=== PATIENT | male | born 1970 | race Caucasian/White ===

== ENCOUNTER 2017-02-25 08:55 | Emergency (ER) | payer MEDICAID ==
[~2017-02-25] VITALS: Ht 182.9 cm; Wt 64.5 kg
[~2017-02-25 08:55] MED LIST: ACET500C5 PO; ALBU8.5H3 INH; BENZ100C70 PO; LEVO750T25 PO; METR500T14 PO
[2017-02-25 09:01] VITALS: Ht 182.9 cm; Wt 64.5 kg
[2017-02-25 10:03] LABS: ADD SCAN DIFF NO
[2017-02-25 10:09] LABS: ADD UMIC YES; UR ASCORBIC ACID NEGATIVE (NEGATIVE); UR BILIRUBIN (Dip) NEGATIVE (NEGATIVE); UR BLOOD (Dip) 1+ mg/dL (NEGATIVE); UR CLARITY CLEAR (CLEAR); UR COLOR STRAW (YELLOW); UR GLUCOSE (Dip) NEGATIVE (NEGATIVE); UR KETONES (Dip) NEGATIVE (NEGATIVE); UR LEUKOCYTE ESTERASE (Dip) NEGATIVE Leu/ul (NEGATIVE); UR NITRITE (Dip) NEGATIVE (NEGATIVE); UR RBC 1 /HPF (0-5); UR SPECIFIC GRAVITY (Dip) 1.006 (1.003-1.030); UR TOTAL PROTEIN (Dip) NEGATIVE (NEGATIVE); UR UROBILINOGEN (Dip) NEGATIVE (NEGATIVE)
--- NOTE | 2017-02-25 10:18 | RADRPT ---
PROCEDURE: Chest Radiograph. CLINICAL INDICATION: Shortness of breath TECHNIQUE: Single frontal chest radiograph. COMPARISON: Chest radiograph 10/27/2015 FINDINGS: The cardiomediastinal silhouette is within normal limits. No infiltrate or effusion is seen. Th e bones are intact. IMPRESSION: 1. Unremarkable chest radiograph. RPTAT: KK .Juan C Vu MD, MD Date Time Electronically viewed and signed by .Juan C Vu MD, on 02/25/2017 10:18 .B/
[2017-02-25 10:25] LABS: ALBUMIN 4.7 g/dl (3.3-4.9); ALBUMIN/GLOBULIN RATIO 1.67; BILIRUBIN,INDIRECT 0.8 mg/dl (0-1.1); BILIRUBIN,TOTAL 0.8 mg/dl (0.2-1.3); CALCIUM 9.8 mg/dl (8.4-10.2); CREATININE 0.78 mg/dl (0.61-1.24); POTASSIUM 5.3 mmol/L (3.5-5.1); TOTAL PROTEIN 7.5 g/dl (6.1-8.1)
[2017-02-25 10:30] LABS: BASOPHILS % 0.5 % (0.0-2.0); EOSINOPHILS # 0.2 10^3/ul (0.0-0.5); HEMATOCRIT 44.3 % (42.0-52.0); HEMOGLOBIN 14.4 g/dl (14.0-18.0); LYMPHOCYTES # 1.5 10^3/ul (0.8-2.9); LYMPHOCYTES % 36.3 % (15.0-51.0); MEAN CORPUSCULAR HEMOGLOBIN 31.4 pg (29.0-33.0); MEAN CORPUSCULAR HGB CONC 32.5 g/dl (32.0-37.0); MEAN CORPUSCULAR VOLUME 96.5 fl (82.0-101.0); MEAN PLATELET VOLUME 8.8 fl (7.4-10.4); MONOCYTE # 0.4 10^3/ul (0.3-0.9); NEUTROPHIL # 2.1 10^3/ul (1.6-7.5); PLATELET COUNT 259 10^3/UL (140-415); RED BLOOD COUNT 4.59 10^6/ul (4.70-6.10); RED CELL DISTRIBUTION WIDTH 14.6 % (11.5-14.5); WHITE BLOOD COUNT 4.2 10^3/ul (4.8-10.8)
--- NOTE | 2017-02-25 11:43 | ERD ---
ER Documentation Chief Complaint Date/Time DATE: 02/25/17 TIME: 11:38 Chief Complaint FREQUENCY OF URINATION , BURRY VISION , CHEST CONGESTION X FEW MONTHS HPI This is a 46-year-old male presents to the ER with multiple complaints. Patient states that over the last year he has felt as if he has been getting short of breath. Patient denies any chest pain. Shortness of breath occurs intermittently and is not specific to exertion. He states that he is also having frequent urination which occurs during the day and throughout the night. He does admit to some weight loss and chills at night. He also admits to blurry vision which occurs early in the morning. Patient does admit to subjective fevers over the last year. Patient denies any cough or cold symptoms. He denies any abdominal pain and denies nausea vomiting or diarrhea. Patient does not have a primary care doctor. ROS 12 point review of systems was done, all negative except per HPI. Medications Home Meds Active Scripts Benzonatate* (Tessalon Perle*) 100 Mg Capsule, 100 MG PO Q8H Y for COUGH, #30 CAP Prov:KIET MILLIGAN PA-C 10/27/15 Metronidazole* (Metronidazole*) 500 Mg Tablet, 500 MG PO BID, #7 TAB Prov:KIET MILLIGAN PA-C 10/27/15 Acetaminophen* (Tylophen*) 500 Mg Capsule, 1 CAP PO Q4 Y for PAIN AND OR ELEVATED TEMP, #20 CAP Prov:KAILEE MARTINEZ PA-C 10/14/15 Albuterol Sulfate* (Proair HFA*) 8.5 Gm Hfa.aer.ad, 2 PUFF INH Q4H Y for WHEEZING AND SOB, #1 INHALER Prov:KAILEE MARTINEZ PA-C 10/14/15 Levofloxacin* (Levaquin*) 750 Mg Tablet, 750 MG PO DAILY for 5 Days, TAB Prov:KAILEE MARTINEZ PA-C 10/14/15 PMhx/Soc Medical and Surgical Hx: pt denies Surgical Hx Hx Respiratory Disorders: Yes (PNEUMONIA ) Hx Alcohol Use: No Hx Substance Use: No Hx Tobacco Use: No Physical Exam Vitals Vital Signs Date Time Temp Pulse Resp B/P Pulse Ox O2 Delivery O2 Flow Rate FiO2 7/17 09:01 98.1 68 18 127/83 100 Physical Exam GENERAL: The patient is well developed and appropriate for usual state of health , in no apparent distress. HEENT: Atraumatic. CHEST: Clear to auscultation bilaterally. There are no rales, wheezes or rhonchi. HEART: Regular rate and rhythm. No murmurs, clicks, rubs or gallops. ABDOMEN: Soft, nontender and nondistended. EXTREMITIES: Full range of motion. Grossly neurovascularly intact.no leg redness swelling or pain NEURO: Alert and oriented. Cranial nerves II through XII are intact. SKIN: There is no apparent rash or petechia. The skin is warm and dry. Result Diagram: 02/25/1749 02/25/1749 Results 24 hrs Laboratory Tests Test 02/25/17 09:49 02/25/17 09:50 White Blood Count 4.210^3/ul Red Blood Count 4.5910^6/ul Hemoglobin 14.4g/dl Hematocrit 44.3% Mean Corpuscular Volume 96.5fl Mean Corpuscular Hemoglobin 31.4pg Mean Corpuscular Hemoglobin Concent 32.5g/dl Red Cell Distribution Width 14.6% Platelet Count 08227^3/UL Mean Platelet Volume 8.8fl Neutrophils % 49.0% Lymphocytes % 36.3% Monocytes % 9.0% Eosinophils % 5.0% Basophils % 0.5% Nucleated Red Blood Cells % 0.0/100WBC Neutrophils # 2.110^3/ul Lymphocytes # 1.510^3/ul Monocytes # 0.410^3/ul Eosinophils # 0.210^3/ul Basophils # 0.010^3/ul Nucleated Red Blood Cells # 0.010^3/ul Sodium Level 143mmol/L Potassium Level 5.3mmol/L Chloride Level 101mmol/L Carbon Dioxide Level 27mmol/L Anion Gap 20 Blood Urea Nitrogen 8mg/dl Creatinine 0.78mg/dl Glucose Level 84mg/dl Calcium Level 9.8mg/dl Total Bilirubin 0.8mg/dl Direct Bilirubin 0.00mg/dl Indirect Bilirubin 0.8mg/dl Aspartate Amino Transf (AST/SGOT) 33IU/L Alanine Aminotransferase (ALT/SGPT) 44IU/L Alkaline Phosphatase 86IU/L Total Protein 7.5g/dl Albumin 4.7g/dl Globulin 2.80g/dl Albumin/Globulin Ratio 1.67 Urine Color STRAW Urine Clarity CLEAR Urine pH 5.0 Urine Specific Mccarr 1.006 Urine Ketones NEGATIVEmg/dL Urine Nitrite NEGATIVEmg/dL Urine Bilirubin NEGATIVEmg/dL Urine Urobilinogen NEGATIVEmg/dL Urine Leukocyte Esterase NEGATIVELeu/ul Urine Microscopic RBC 1/HPF Urine Microscopic WBC 0/HPF Urine Hemoglobin 1+mg/dL Urine Glucose NEGATIVEmg/dL Urine Total Protein NEGATIVEmg/dl Procedures/MDM Differential diagnosis includes but is not limited to; STEMI, dissection, pneumothorax, PE, esophageal rupture, tamponade, pneumonia, pericarditis, GERD, musculoskeletal, endocarditis, anxiety. This is a 46-year-old male that comes to the ER with multiple complaints. In regards to patient's shortness of breath this is been going on for the last year, suspicion for acute emergent etiology is low. EKG was taken and read by Dr. Sumner 50bpm no ST elevation or t wave inversion. Chest x-ray was negative for pneumonia, pneumothorax. Suspicion for pulmonary embolism is low patient does not have any PERC criteria. In regards to patient's frequency in urination there is no evidence of urinary tract infection, there was however some hematuria. I explained to patient that this is something that needs to be followed up with his primary care doctor. Patient's blood sugar was normal at this time suspicion for diabetes is low, however patient does need a hemoglobin A1c to rule this out completely. Patient is afebrile and well-appearing. He is not hypoxic or in any respiratory distress. Patient needs to follow-up with his primary care doctor within 1-2 days return to ER sooner if symptoms worsen. My medical decision making shared with the patient he understands and agrees with plan. Departure Diagnosis: Primary Impression: Multiple complaints Condition: Stable Patient Instructions: Normal Exam, (Child) (Adult) [facility] Usted se nichols hecho un examen mdico de control que le indica que no est en raymon condicin que requiera tratamiento urgente en el Departamento de Emergencia. Un estudio ms profundo y el tratamiento de casper condicin pueden esperar sin ningn riesgo hasta que usted sea atendida/o en el consultorio de casper mdico o ryamon cl stanley. Es responsabilidad suya arreglar raymon preet para el seguimiento del donato. MANEJO DE CONDICIONES NO URGENTES EN EL FUTURO 1) Si usted tiene un mdico de atencin primaria: Usted debera llamar a casper mdico de atencin primaria antes de venir al departamento de emergencia. Despus de las horas de consultorio, casper doctor o casper asociado/a est disponible por telfono. El mdico o enfermero de angel en el servicio telefnico puede asesorarle por marlyn medio para atender el problema, o donato contrario se puede programar raymon preet. 2) Si usted no tiene un mdico de atencin primaria: Llame al mdico o clnica de referencia que aparece abajo toin las horas de consultorio para hacer raymon preet para que le vean. CLINICAS: [facility] [phone] [facility] [phone] [facility]. [facility] [phone] [facility]. [place] [phone] [facility]. [place] [id number] [phone] [facility]. [phone] [address] Additional Instructions: Llame al doctor MAANA y stefanie raymon PREET PARA DENTRO DE 1-2 BAHENA.Dgale a la secretaria que nosotros le instruimos hacer esta preet.Avise o llame si casper condicin se empeora antes de la preet. Regresa aqui si peor o no mejor. TESSIE ALAN Feb 25, 2017 11:43
== END 2017-02-25 12:05 | disposition home or self-care (01) ==
LOC: FTE 08:55
DX: R35.0 Frequency of micturition (principal); H53.8 Other visual disturbances; R09.89 Other specified symptoms and signs involving the circulatory and respiratory systems; R06.02 Shortness of breath
CPT/HCPCS: 36415; 71010; 80053; 81001; 85025; 93005